=== PATIENT | female | born 1950 | race Caucasian/White ===

== ENCOUNTER 2018-01-04 20:15 | Emergency (ER) | payer MEDICARE, MEDICAID ==
[~2018-01-04] VITALS: Ht 170.2 cm; Wt 78.5 kg
[2018-01-04 20:32] VITALS: BP 145/73; PULSE 89; RESP 18; TEMP 98.1; O2SAT 97
[2018-01-04] MEDS ORDERED: LEVO.125 PO (20:50)
[2018-01-04] MEDS ORDERED: SITA50 PO (20:50)
[2018-01-04] MEDS ORDERED: METF500T PO (20:50)
[2018-01-04] MEDS ORDERED: ATOR40TA16 PO (20:50)
[2018-01-04] MEDS ORDERED: AMLO-168 PO (20:50)
[2018-01-04] MEDS ORDERED: GLIP5TAB8 PO (20:50)
[2018-01-04] MEDS ORDERED: ASPI-516 CHEW (20:50)
[2018-01-04] MEDS ORDERED: ACETAMINOPHEN/HYDROcodone 325 MG/5 MG TAB PO ONE (21:15)
--- NOTE | 2018-01-04 21:17 | PD ---
HPI Chief Complaint: Injury Time Seen by Provider: 20:53 Travel History International Travel<30 days: No Contact w/Intl Traveler<30days: No Traveled to known affect area: No History of Present Illness HPI 67yo F with PMH of HTN and hypothyroidism presents to the ED with c/o left knee swelling after trip and fall at 6pm today. Pt trip over the foot of the highchair at outdoor restaurant and fell on left knee. Pt was able to ambulate after but the swelling keeps getting large so decided to come to be evaluated. Pt also with mild pain in right thumb. Pt also have abrasion in left elbow but with no pain. Denies any fever, head injury, chest pain, sob, n/v, abdominal pain, focal weakness or numbness. Denies any anticoagulations. PFSH Past Medical History High Cholesterol: Yes Diabetes: Yes (Metformin) Patient Takes Glucophage: Yes Diminished Hearing: No Hypertension: Yes Thyroid Disease: Yes Influenza Vaccination: Yes ?: Not Past Surgical History Appendectomy: Yes Cholecystectomy: Yes Hysterectomy: Yes Tonsillectomy: Yes Social History Alcohol Use: No Tobacco Use: No Substance Use: No Allergies-Medications (Allergen,Severity, Reaction): Coded Allergies: No Known Allergies (Unverified , 01/04/18) Reported Meds & Prescriptions Reported Meds & Active Scripts Active Reported Amlodipine-Valsartan 10-160 Mg Tab 1 Tab PO DAILY Atorvastatin (Atorvastatin Calcium) 40 Mg Tab 40 Mg PO HS Synthroid (Levothyroxine Sodium) 125 Mcg Tab 125 Mcg PO DAILY Januvia (Sitagliptin Phosphate) 50 Mg Tab 50 Mg PO DAILY Glipizide 5 Mg Tab 5 Mg PO BIDAC Take 30 minutes before a meal Metformin (Metformin HCl) 500 Mg Tab 500 Mg PO BIDPC Aspirin 81 Mg Chew 81 Mg CHEW DAILY Review of Systems Except as stated in HPI: all other systems reviewed are Neg Physical Exam Narrative GENERAL: 67yo F in mild distress. SKIN: Focused skin assessment warm/dry. HEAD: Atraumatic. Normocephalic. EYES: Pupils equal and round. No scleral icterus. No injection or drainage. ENT: No nasal bleeding or discharge. Mucous membranes pink and moist. NECK: No midline cervical spine ttp. CARDIOVASCULAR: Regular rate and rhythm. No murmur appreciated. RESPIRATORY: No accessory muscle use. Clear to auscultation. Breath sounds equal bilaterally. GASTROINTESTINAL: Abdomen soft, non-tender, nondistended. MUSCULOSKELETAL: Left knee: +Ecchymoses and edema with ttp. Distal pulses intact. Sensation intact. Left elbow: Small abrasion, not ttp. FROM left elbow. Distal pulses intact. Sensation intact. Right hand: +TTP thenar eminence. No scaphoid ttp. FROM in all digits. Sensation intact. Distal pulses intact. Right foot: +Small abrasion in tip of right big toe. No ttp. Distal pulses intact. Sensation intact. NEUROLOGICAL: Awake and alert. No obvious cranial nerve deficits. Motor grossly within normal limits. Normal speech. PSYCHIATRIC: Appropriate mood and affect; insight and judgment normal. Data Data Last Documented VS Vital Signs Date Time Temp Pulse Resp B/P (MAP) Pulse Ox O2 Delivery O2 Flow Rate FiO2 01/04/18 20:32 98.1 89 18 145/73 (97) 97 Orders Orders Knee, Ltd (1 Or 2vws) (01/04/18 ) Hand, Limited (2vws) (01/04/18 ) Acetamin-Hydrocod 325-5 Mg ([place] 5-325 (01/04/18 21:15) ^ Knee Immobilizer (01/04/18 22:23) Crutches (01/04/18 22:23) MDM Medical Decision Making Medical Screen Exam Complete: Yes Emergency Medical Condition: Yes Differential Diagnosis Hematoma vs. ligamentous injury vs. fracture vs. contusion Narrative Course 67yo F with left knee pain s/p fall today. Pt with large hematoma on exam. + Abrasion but said tetanus is up to date. Decreased range of motion in left knee due to pain. Mild ttp right thenar eminence. Ice place on left knee. Xray right hand negative. No scaphoid ttp. Xray left knee showed extra- articular/subcutaneous contusion/hematoma anteromedially. No fracture or significant joint effusion. Pt given lortab which helped with pain. Said pain only when she bends her knee or puts weigh on it. Left knee placed in knee immobilizer. Pt does not want crutches. Pt is here on vacation and wants to follow up with her own doctors back home. Return precautions given. Diagnosis Primary Impression: Traumatic hematoma of left knee Qualified Codes: S80.02XA - Contusion of left knee, initial encounter Patient Instructions: General Instructions Departure Forms: Tests/Procedures Additional Instructions: Please follow up with orthopedic surgery if pain and swelling worsens. Return to the ED if symptoms worsen. Med/Other Pt SpecificInfo: Prescription(s) given Scripts Acetaminophen (Tylenol) 325 Mg Tab 650 MG PO Q6H Y for PAIN SCALE 1 TO 4, #20 TAB 0 Refills Prov: Anita Estevez DO 01/04/18 Disposition: 01 DISCHARGE HOME Condition: Stable Anita Estevez DO Jan 04, 2018 21:17
--- NOTE | 2018-01-04 22:13 | RADRPT ---
EXAM DATE/TIME: 01/04/2018 21:09 [facility] COMPARISON: No previous studies available for comparison. INDICATIONS : Pain and swelling due to fall. MEDICAL HISTORY : None. SURGICAL HISTORY : None. ENCOUNTER: Initial ACUITY: 1 day PAIN SCORE: 10/10 LOCATION: Left knee, anterior. FINDINGS: Large anteromedial subcutaneous contusion/hematoma present. No significant joint effusion seen. No fr acture or subluxation. There is mild medial and patellofemoral compartment osteoarthritis. No radiopaque foreign body. CONCLUSION: Extra-articular/subcutaneous contusion/hematoma anteromedially. No fracture or significant joint effu dick. Chai Hebert MD on January 04, 2018 at 22:10 Board Certified Radiologist. This report was verified electronically.
--- NOTE | 2018-01-04 22:14 | RADRPT ---
EXAM DATE/TIME: 01/04/2018 21:09 [facility] COMPARISON: No previous studies available for comparison. INDICATIONS : Pain due to fall. MEDICAL HISTORY : None. SURGICAL HISTORY : None. ENCOUNTER: Initial ACUITY: 1 day PAIN SCORE: 2/10 LOCATION: Right upper extremity hand, phalanges, and heel of palm. FINDINGS: Two view examination of the right hand demonstrates no soft tissue swelling, dislocation, or fracture . The joint spaces are maintained. Bony mineralization is normal. CONCLUSION: Intact right hand. Chai Hebert MD on January 04, 2018 at 22:11 Board Certified Radiologist. This report was verified electronically.
[2018-01-04] MEDS ORDERED: TYLE325T PO (22:37)
== END 2018-01-04 22:50 | disposition home or self-care (01) ==
LOC: PHEFT 20:15
DX: S80.02XA Contusion of left knee, initial encounter (principal); M79.644 Pain in right finger(s); E78.00 Pure hypercholesterolemia, unspecified; E11.9 Type 2 diabetes mellitus without complications; I10 Essential (primary) hypertension; E03.9 Hypothyroidism, unspecified; W18.09XA Striking against other object with subsequent fall, initial encounter; Y92.511 Restaurant or cafe as the place of occurrence of the external cause; Z79.84 Long term (current) use of oral hypoglycemic drugs
CPT/HCPCS: 73120; 73560; 99284; E0113